=== PATIENT | female | born 1980 | race Caucasian/White ===

== ENCOUNTER 2016-06-30 21:47 | Emergency (ER) | payer MEDICAID, OTHER, SELFPAY ==
[~2016-06-30] VITALS: Ht 162.6 cm; Wt 95.7 kg
[2016-06-30 21:56] VITALS: BP 139/86
== END 2016-07-01 00:05 | disposition home or self-care (01) ==
LOC: ED 23:58
DX: S90.111A Contusion of right great toe without damage to nail, initial encounter (principal); S90.211A Contusion of right great toe with damage to nail, initial encounter; F19.10 Other psychoactive substance abuse, uncomplicated; W20.8XXA Other cause of strike by thrown, projected or falling object, initial encounter; Y93.89 Activity, other specified; Y92.89 Other specified places as the place of occurrence of the external cause; Y99.8 Other external cause status
CPT/HCPCS: 99284

== ENCOUNTER 2018-09-15 13:00 | Inpatient (IN) | payer SELFPAY ==
[~2018-09-15] VITALS: Ht 160 cm; Wt 95.0 kg
--- NOTE | 2018-09-15 13:25 | NUR ---
LUNCH RN: PT PRESENTING TO ER FOR EPIGASTRIC BUNRING/PRESSURE PAIN THAT STARTED AT 1100 TODAY. LMP LAST WEEK. BM TODAY. MD TO BEDSIDE FOR ORDERS. IV PLACED, LABS DRAWN, UA COLLECTED AND SENT TO LAB. PT MEDICATED PER MAY. FAMLIY AT BEDSIDE. CALL LIGHT WITHIN REACH. AWAITING TESTING AND RESULTS AT THIS TIME
[2018-09-15] MEDS ORDERED: SODIUM CHLORIDE FLUSH 10ML SYR IVF ONE (13:30)
[2018-09-15] MEDS ORDERED: ONDANSETRON 2MG/ML, 2ML IVPush ONE (13:30)
[2018-09-15] MEDS ORDERED: HYDROmorphone 2 MG/ML, 1ML IVPush PRN (13:30)
[2018-09-15] MEDS ORDERED: ONDANSETRON 2MG/ML, 2ML ONE (13:33)
[2018-09-15] MEDS ORDERED: HYDROmorphone 2 MG/ML, 1ML ONE (13:34)
[2018-09-15 13:42] LABS: MEAN CORPUSCULAR HEMOGLOBIN 28.6 pg (27.0-34.8); MEAN CORPUSCULAR HGB CONC 33.1 g/dL (32.4-35.8); MEAN CORPUSCULAR VOLUME 86.3 fL (80-100); MEAN PLATELET VOLUME 9.3 fL (7.4-10.4); PLATELET COUNT 268 x10^3/uL (130-400); RED BLOOD COUNT 5.03 x10^6/uL (3.82-5.3)
--- NOTE | 2018-09-15 13:43 | NUR ---
RECEIVED BEDSIDE REPORT FROM LENNIE AVERY RN. ASSUMING PT CARE AT THIS TIME. PT HERE FOR EPIGASTRIC PAIN.
[2018-09-15 13:52] LABS: ALANINE AMINOTRANSFERASE 20 U/L (12-78); ALBUMIN 3.7 g/dL (3.4-5.0); ANION GAP 6 mmol/L (5-15); CALCIUM 8.8 mg/dL (8.5-10.1); CHLORIDE 110 mmol/L (98-107); CREATININE 0.55 mg/dL (0.55-1.02)
[2018-09-15 13:54] LABS: ALKALINE PHOSPHATASE 76 U/L (45-117); BILIRUBIN,TOTAL 0.4 mg/dL (0.2-1.0); TOTAL PROTEIN 7.6 g/dL (6.4-8.2)
--- NOTE | 2018-09-15 13:54 | NUR ---
PT OUT OF ROOM TO IMAGING.
[2018-09-15 13:57] LABS: HCG UR SG 1.013 (1.003-1.030); MICROSCOPIC AUTO
[2018-09-15 14:03] LABS: CULTURE INDICATED? YES
--- NOTE | 2018-09-15 14:14 | NUR ---
PT BACK FROM IMAGING. PT TALKING ON CELL PHONE LAYING ON GURNEY. FAMILY BEDSIDE., NO ACUTE DISTRESS NOTED. VSS
[2018-09-15 14:25] LABS: BASOPHILS # (AUTO) 0.03 x10^3/uL (0-0.1); BASOPHILS % (AUTO) 0 % (0-1); EOSINOPHILS % (AUTO) 1 % (1-7); LYMPHOCYTES # (AUTO) 1.54 x10^3/uL (1-3.4); LYMPHOCYTES % (AUTO) 12 % (22-44); MD SCAN; MONOCYTES # (AUTO) 0.51 x10^3/uL (0.2-0.8); MONOCYTES % (AUTO) 4 % (2-9); NEUTROPHILS # (AUTO) 10.27 x10^3/uL (1.8-6.8); NEUTROPHILS % (AUTO) 83 % (42-75)
[2018-09-15 14:28] LABS: RED CELL DISTRIBUTION WIDTH 12.7 % (9.6-15.2)
--- NOTE | 2018-09-15 14:39 | NUR ---
PT EDUCATED REGARDING NPO STATUS. PT AND FAMILY MEMBER VERBALIZED UNDERSTANDING.
--- NOTE | 2018-09-15 15:24 | NUR ---
PT RESTING ON [facility]. HOSPITALIST BEDSIDE. INTREPERTER BEDSIDE.
[2018-09-15] MEDS ORDERED: hydrALAzine 20 MG/ML, 1ML IVPush PRN (15:30)
[2018-09-15] MEDS ORDERED: ONDANSETRON 2MG/ML, 2ML IVPush PRN (15:30)
[2018-09-15] MEDS ORDERED: SODIUM CHLORIDE FLUSH 10ML SYR IVF PRN (15:30)
[2018-09-15] MEDS ORDERED: ACETAMINOPHEN 325 MG TABLET PO PRN (15:30)
--- NOTE | 2018-09-15 15:41 | NUR ---
PT RESTING ON GURNEY. FAMILY BEDSIDE. NO ACUTE DISTRESS NOTED. NO NEEDS REQUESTED AT THIS TIME. AWAITING ROOM ASSIGNMENT.
--- NOTE | 2018-09-15 16:11 | NUR ---
REPORT TO DEMETRIUS CONKLIN. ALL QUESTIONS ANSWERED.
--- NOTE | 2018-09-15 16:50 | NUR ---
PT TRANSPORTED TO FLOOR WITH ALL PERSONAL BELONGINGS.
[2018-09-15 17:00] VITALS: BP 118/78
[2018-09-15] MEDS: OXYcodone IR 5MG TABLET PO PRN ×3 (17:19→22:53)
[2018-09-15] MEDS: LACTATED RINGERS 1,000 ML IV SCH ×2 (17:19→22:53)
[2018-09-15 19:06] VITALS: BP 122/83
[2018-09-16 01:11] VITALS: BP 118/79
[2018-09-16] MEDS: KETOROLAC 30 MG/1 ML IV PRN ×2 (05:28→12:14)
[2018-09-16] MEDS: LACTATED RINGERS 1,000 ML IV SCH ×3 (05:28→17:45)
[2018-09-16 05:31] LABS: BASOPHILS # (AUTO) 0.03 x10^3/uL (0-0.1); BASOPHILS % (AUTO) 0 % (0-1); EOSINOPHILS # (AUTO) 0.08 x10^3/uL (0-0.4); EOSINOPHILS % (AUTO) 1 % (1-7); LYMPHOCYTES # (AUTO) 2.55 x10^3/uL (1-3.4); LYMPHOCYTES % (AUTO) 25 % (22-44); MD NO; MEAN CORPUSCULAR HEMOGLOBIN 28.3 pg (27.0-34.8); MEAN CORPUSCULAR HGB CONC 33.2 g/dL (32.4-35.8); MEAN CORPUSCULAR VOLUME 85.1 fL (80-100); MONOCYTES # (AUTO) 0.58 x10^3/uL (0.2-0.8); MONOCYTES % (AUTO) 6 % (2-9); NEUTROPHILS % (AUTO) 68 % (42-75); PLATELET COUNT 262 x10^3/uL (130-400); RED BLOOD COUNT 4.64 x10^6/uL (3.82-5.3); RED CELL DISTRIBUTION WIDTH 12.9 % (9.6-15.2)
[2018-09-16 05:42] LABS: CHLORIDE 107 mmol/L (98-107)
[2018-09-16 05:53] LABS: ALANINE AMINOTRANSFERASE 19 U/L (12-78); ALBUMIN 3.4 g/dL (3.4-5.0); ALKALINE PHOSPHATASE 72 U/L (45-117); ANION GAP 6 mmol/L (5-15); BILIRUBIN,TOTAL 0.5 mg/dL (0.2-1.0); CALCIUM 8.4 mg/dL (8.5-10.1); CHOL/HDL RATIO 2.4; CHOLESTEROL, TOTAL 115 mg/dL (140-239); CREATININE 0.49 mg/dL (0.55-1.02); HDL CHOL % 41 % (28-40); HDL CHOLESTEROL (DIRECT) 47 mg/dL (40-60); LDL CHOLESTEROL,CALCULATED 45 mg/dL (54-169); TRIGLYCERIDES 115 mg/dL (50-200); VLDL CHOLESTEROL 23 mg/dL (0-25)
[2018-09-16 06:42] VITALS: BP 113/72
[2018-09-16 12:15] VITALS: BP 109/69
[2018-09-16 19:56] VITALS: BP 112/72
[2018-09-17] MEDS: LACTATED RINGERS 1,000 ML IV SCH ×2 (01:00→06:39)
[2018-09-17 01:04] VITALS: BP 123/66
[2018-09-17 05:27] LABS: CALCIUM 8.5 mg/dL (8.5-10.1); CHLORIDE 111 mmol/L (98-107)
[2018-09-17 05:33] LABS: ALANINE AMINOTRANSFERASE 18 U/L (12-78); ALKALINE PHOSPHATASE 54 U/L (45-117); ANION GAP 8 mmol/L (5-15); BILIRUBIN,TOTAL 0.6 mg/dL (0.2-1.0); TOTAL PROTEIN 6.4 g/dL (6.4-8.2)
[2018-09-17 06:34] VITALS: BP 135/80
[2018-09-17 14:55] VITALS: BP 131/83
[2018-09-17 19:05] VITALS: BP 126/78
[2018-09-18 01:15] VITALS: BP 137/86
[2018-09-18 05:00] LABS: ALBUMIN 3.2 g/dL (3.4-5.0); ANION GAP 8 mmol/L (5-15); CALCIUM 8.5 mg/dL (8.5-10.1); CHLORIDE 112 mmol/L (98-107)
[2018-09-18 05:05] LABS: ALANINE AMINOTRANSFERASE 16 U/L (12-78); ALKALINE PHOSPHATASE 63 U/L (45-117); BILIRUBIN,TOTAL 0.6 mg/dL (0.2-1.0); CREATININE 0.51 mg/dL (0.55-1.02); TOTAL PROTEIN 6.9 g/dL (6.4-8.2)
[2018-09-18 08:30] VITALS: BP 142/90
[2018-09-18 14:50] VITALS: BP 122/81
[2018-09-18 20:31] VITALS: BP 125/85
[2018-09-18 23:29] LABS: HCG UR SG 1.011 (1.003-1.030)
[2018-09-19 00:08] VITALS: BP 129/83
[2018-09-19 05:16] LABS: BASOPHILS # (AUTO) 0.04 x10^3/uL (0-0.1); BASOPHILS % (AUTO) 1 % (0-1); EOSINOPHILS % (AUTO) 3 % (1-7); LYMPHOCYTES # (AUTO) 2.03 x10^3/uL (1-3.4); LYMPHOCYTES % (AUTO) 26 % (22-44); MD NO; MEAN CORPUSCULAR HEMOGLOBIN 28.2 pg (27.0-34.8); MEAN CORPUSCULAR HGB CONC 33.3 g/dL (32.4-35.8); MEAN CORPUSCULAR VOLUME 84.7 fL (80-100); MONOCYTES # (AUTO) 0.48 x10^3/uL (0.2-0.8); MONOCYTES % (AUTO) 6 % (2-9); NEUTROPHILS # (AUTO) 5.19 x10^3/uL (1.8-6.8); NEUTROPHILS % (AUTO) 65 % (42-75); PLATELET COUNT 231 x10^3/uL (130-400); RED BLOOD COUNT 4.25 x10^6/uL (3.82-5.3)
[2018-09-19 05:23] LABS: INTERNATIONAL NORMALIZED RATIO 1.1 (0.93-1.1); PROTHROMBIN TIME 11.5 Seconds (9.6-11.5)
[2018-09-19 05:38] LABS: ALANINE AMINOTRANSFERASE 15 U/L (12-78); ALBUMIN 3.3 g/dL (3.4-5.0); ANION GAP 9 mmol/L (5-15); CALCIUM 8.7 mg/dL (8.5-10.1); CHLORIDE 111 mmol/L (98-107)
[2018-09-19 05:40] LABS: ALKALINE PHOSPHATASE 63 U/L (45-117); BILIRUBIN,TOTAL 0.6 mg/dL (0.2-1.0); CREATININE 0.49 mg/dL (0.55-1.02); TOTAL PROTEIN 7.3 g/dL (6.4-8.2)
[2018-09-19] MEDS ORDERED: BUPIVACAINE/EPI 0.5% 1:200K ONE ×2 (06:55→08:23)
[2018-09-19 08:00] VITALS: BP 148/81
[2018-09-19] MEDS ORDERED: FENTANYL PF 100 MCG/2ML ONE ×3 (08:52→10:06)
[2018-09-19] MEDS ORDERED: MIDAZOLAM 1 MG/ML, 2ML ONE (08:53)
[2018-09-19] MEDS ORDERED: MEPERIDINE/PF 50 MG/ML ONE (09:32)
[2018-09-19] MEDS ORDERED: OXYcodone 5 MG/5 ML ORAL.SOL UDC ONE (09:46)
[2018-09-19] MEDS ORDERED: ACETAMINOPHEN 650 MG/20.3 ML UDC ONE (09:46)
[2018-09-19] MEDS: FENTANYL PF 100 MCG/2ML IV PRN ×3 (09:53→10:13)
[2018-09-19] MEDS ORDERED: ACETAMINOPHEN 325 MG TABLET PO PRN (10:00)
[2018-09-19] MEDS ORDERED: MEPERIDINE/PF 25MG/0.5ML IVPush PRN (10:00)
[2018-09-19] MEDS ORDERED: HYDROmorphone 2 MG/ML, 1ML IVPush PRN (10:00)
[2018-09-19] MEDS ORDERED: LABETALOL 5MG/ML, 20ML IV PRN (10:00)
[2018-09-19] MEDS ORDERED: PROMETHAZINE 25 MG/ML, 1ML IV PRN (10:00)
[2018-09-19] MEDS ORDERED: OXYcodone 5 MG/5 ML ORAL.SOL UDC PO PRN (10:00)
[2018-09-19] MEDS ORDERED: ALBUTEROL SULFATE 2.5 MG/3 ML NPPB PRN (10:00)
[2018-09-19] MEDS ORDERED: hydrALAzine 20 MG/ML, 1ML IV PRN (10:00)
[2018-09-19] MEDS ORDERED: DIAZEPAM 5 MG/ML, 2ML IVPush PRN (10:00)
[2018-09-19 11:00] VITALS: BP 146/79
[2018-09-19 13:50] VITALS: BP 145/82
[2018-09-19] MEDS ORDERED: HYDR-3240 PO (14:27)
[2018-09-19] MEDS: KETOROLAC 30 MG/1 ML IV PRN (14:43)
[2018-09-19] MEDS ORDERED: POLY17PO5 PO (14:46)
[2018-09-19] MEDS ORDERED: SUCCINYLCHOLINE 20 MG/ML, 10ML ONE (15:01)
[2018-09-19] MEDS ORDERED: NEOSTIGMINE 1 MG/ML, 10ML ONE (15:01)
[2018-09-19] MEDS ORDERED: DEXAMETHASONE 4 MG/ML, 1ML ONE (15:01)
[2018-09-19] MEDS ORDERED: ROCURONIUM 10MG/ML,5ML ONE (15:01)
[2018-09-19] MEDS ORDERED: PROPOFOL 10 MG/ML, 20ML ONE (15:01)
[2018-09-19] MEDS ORDERED: CEFAZOLIN 1,000 MG ONE (15:01)
[2018-09-19] MEDS ORDERED: GLYCOPYRROLATE 0.2MG/1ML, 5ML ONE (15:01)
== END 2018-09-19 16:00 | disposition home or self-care (01) | DRG 417 ==
LOC: ED 14:45 → EDIP 15:05 → 3NE 16:37
PROVIDERS: ADMIT Internal Medicine; ATTEND Internal Medicine
PROC: 0FT44ZZ Resection of Gallbladder, Percutaneous Endoscopic Approach (ICD-10-PCS; principal; 2018-09-19 11:00)
DX: K80.00 Calculus of gallbladder with acute cholecystitis without obstruction (principal); K85.10 Biliary acute pancreatitis without necrosis or infection; I10 Essential (primary) hypertension; R74.8 Abnormal levels of other serum enzymes; E66.9 Obesity, unspecified; Z68.37 Body mass index [BMI] 37.0-37.9, adult
CPT/HCPCS: 36415; 74181; 76700; 80053; 80061; 81001; 81025; 83690; 85025; 85610; 87086; 88304; 93005; 96374; 96375; 99285; G0378; J0690; J1100; J1170; J1885; J2175; J2250; J2405; J2704; J2710; J3010; J0330; J7120